=== PATIENT | female | born 1955 | race Caucasian/White ===

== ENCOUNTER → 2024-09-22 10:49 | Outpatient (REF) | payer MEDICARE, OTHER, SELFPAY | LOC: WDC 10:49 | PROVIDERS: ATTENDING PHYSICIAN Physician Assistant Medical | DX: Z12.31 Encounter for screening mammogram for malignant neoplasm of breast (principal) | CPT/HCPCS: 77063; 77067 ==

== ENCOUNTER 2024-11-26 06:23 | Day surgery (SDC) | payer MEDICARE, OTHER, SELFPAY | END 2024-11-26 09:01 | disposition home or self-care (01) | LOC: GI 06:23 | PROVIDERS: ATTENDING PHYSICIAN Internal Medicine Gastroenterology | DX: Z12.11 Encounter for screening for malignant neoplasm of colon (principal); K57.30 Diverticulosis of large intestine without perforation or abscess without bleeding; K64.4 Residual hemorrhoidal skin tags; K63.3 Ulcer of intestine; K62.89 Other specified diseases of anus and rectum; K50.10 Crohn's disease of large intestine without complications | CPT/HCPCS: 45380; 88305 ==

== ENCOUNTER → 2025-08-27 09:07 | Outpatient (REF) | payer MEDICARE, OTHER, SELFPAY | LOC: MRI 3T 09:07 | PROVIDERS: ATTENDING PHYSICIAN Internal Medicine Gastroenterology; FAMILY PHYSICIAN Physician Assistant Medical | DX: K50.112 Crohn's disease of large intestine with intestinal obstruction (principal) | CPT/HCPCS: 72197; 74183; A9585 ==

== ENCOUNTER → 2025-09-28 10:35 | Outpatient (REF) | payer MEDICARE, OTHER, SELFPAY | LOC: WDC 10:35 | PROVIDERS: ATTENDING PHYSICIAN Physician Assistant | DX: Z12.31 Encounter for screening mammogram for malignant neoplasm of breast (principal) | CPT/HCPCS: 77063; 77067 ==